=== PATIENT | male | born 1950 | race African-American/Black ===

== ENCOUNTER → 2025-04-18 | Outpatient (CLI) | payer OTHER, MEDICAID ==
[~2025-04-18] MED LIST: ALBU8.5H INH; AMLO1TAB24 PO; DUPI300P IM; ENSI3AMP INH; FINA5TAB2 PO; FLUT1BLS8 INH; GABA-1171 PO; HYDR12.510 PO; LISI40TA10 PO; MONT10TA97 PO; PRED10TA2 PO; ROFL250T PO; SUBL100I IM; TAMS1CAP17 PO
== END ==
LOC: M ONCR 10:51
PROVIDERS: ATTEND General Practice
DX: C61 Malignant neoplasm of prostate (principal)

== ENCOUNTER → 2025-04-26 | Outpatient (CLI) | payer MEDICARE, MEDICAID ==
[~2025-04-26] VITALS: Ht 172.7 cm; Wt 87.5 kg
[~2025-04-26] MED LIST changes: +ATIV1TAB7 PO; +CIPR750T2 PO; +FLEEENE12 PR
[2025-04-26 14:32] VITALS: BP 149/83; TEMP 96.9; O2SAT 98
[2025-04-26 15:25] VITALS: BP 115/76; TEMP 97; O2SAT 99
[2025-04-26] MEDS: LIDOCAINE VISCOUS 2% SOLN 15 ML UDC XX ONE (15:30)
[2025-04-26] MEDS: LIDOCAINE 2% MDV 20 ML VIAL XX ONE (15:30)
== END ==
LOC: M ONCR 14:27
PROVIDERS: ATTEND General Practice
DX: C61 Malignant neoplasm of prostate (principal)
CPT/HCPCS: 55874; 55876; A4648; C1889